=== PATIENT | female | born 1995 | race African-American/Black ===

== ENCOUNTER 2020-07-31 07:56 | Emergency (ER) | payer SELFPAY ==
[~2020-07-31] VITALS: Ht 157.5 cm; Wt 54.0 kg
[2020-07-31 08:52] LABS: HEMATOCRIT. 31.3 % (36.0-48.0); HEMOGLOBIN. 10.3 g/dL (12.0-16.0); MEAN CORPUSCULAR HEMOGLOBIN 20.1 pg (28.0-32.0); MEAN CORPUSCULAR VOLUME 60.9 fL (81.0-99.0); MEAN PLATELET VOLUME 7.3 fl (7.4-10.4); PLATELET 590 x1000/uL (130-400); RED BLOOD CELL COUNT 5.14 mill/uL (4.2-5.4); RED CELL DISTRIBUTION WIDTH 20.5 % (11.6-14.6)
[2020-07-31 08:57] LABS: CHLORIDE 106 mEq/L (98-107)
[2020-07-31 09:10] LABS: B-HCG QUANTITATIVE < 1 mIU/mL (<3)
[2020-07-31 09:19] LABS: PLATELET ESTIMATE INCREASED
[2020-07-31] MEDS ORDERED: IBUPROFEN 600MG TABLET PO ONE (10:30)
[2020-07-31 10:45] VITALS: BP 146/79
== END 2020-07-31 10:45 | disposition home or self-care (01) ==
LOC: ER 08:16
DX: D25.9 Leiomyoma of uterus, unspecified (principal)
CPT/HCPCS: 36415; 76856; 80053; 81025; 84702; 85025; 99284